=== PATIENT | female | born 1995 | race African-American/Black ===

== ENCOUNTER 2021-10-15 05:21 | Emergency (ER) | payer OTHER ==
[~2021-10-15] VITALS: Ht 170.2 cm; Wt 113.4 kg
--- NOTE | 2021-10-15 20:35 | EKG ---
[facility] [address] [facility] [place] [address] [address] and T wave abnormality Abnormal ECG No previous ECGs available Confirmed by JUAN JOSÉ GORDON MD ([id number]) on 10/15/2021 8:35:11 PM Electronically Signed By: JUAN JOSÉ GORDON MD 10/15/212034 PATIENT NAME: RUDDY STALLINGS Electrocardiogram DATE OF : [birth year] PHYSICIAN: JUAN JOSÉ GORDON MD REPORT #: [id number] REPORT IS CONFIDENTIAL AND NOT TO BE RELEASED WITHOUT AUTHORIZATION
== END 2021-10-15 08:00 | disposition home or self-care (01) ==
LOC: ED 05:21
DX: R07.89 Other chest pain (principal); R06.02 Shortness of breath; Z88.5 Allergy status to narcotic agent; Z88.6 Allergy status to analgesic agent
CPT/HCPCS: 36415; 71045; 71260; 80053; 83735; 84484; 84703; 85025; 85379; 93005; 93010; 99285-25; Q9967

== ENCOUNTER 2022-01-24 05:49 | Emergency (ER) | payer OTHER ==
[~2022-01-24] VITALS: Ht 170.2 cm; Wt 119.3 kg
[2022-01-24] MEDS ORDERED: OMEPRAZOLE20 MG PO (06:03)
[2022-01-24] MEDS ORDERED: FLUOXETINE HCL20 MG PO (06:03)
[2022-01-24] MEDS ORDERED: CYCLOBENZAPRINE10 MG PO (06:47)
== END 2022-01-24 08:44 | disposition home or self-care (01) ==
LOC: ED 05:49
DX: M54.50 Low back pain, unspecified (principal); Z88.5 Allergy status to narcotic agent; Z79.899 Other long term (current) drug therapy
CPT/HCPCS: 36415; 72110; 84703; 96372; 99283-25; A9270; J1885

== ENCOUNTER 2022-02-12 16:40 | Emergency (ER) | payer OTHER ==
[~2022-02-12] VITALS: Ht 170.2 cm; Wt 119.3 kg
[~2022-02-12 16:40] MED LIST: CYCLOBENZAPRINE10 MG PO; FLUOXETINE HCL20 MG PO; OMEPRAZOLE20 MG PO
--- OUTSIDE RECORDS SUMMARY | 2022-02-12 16:48 | XMS ---
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 E.D. VISIT COUNT (12 MO.) [address] T[address] 7 NOTE: Visits indicate total known visits. ED/UCC VISIT TRACKING (12 MO.) 02/12/2022 16:[address] [facility] [place] TYPE: Emergency COMPLAINT: - VAGINAL BLOODY DISCHARGE 01/24/2022 05:[address] [facility] [place] TYPE: Emergency COMPLAINT: - BACK AND HIP PAIN DIAGNOSES: - Allergy status to narcotic agent - Other snf (current) drug therapy - Low back pain, unspecified 11/21/2021 19:40 [facility] TYPE: Emergency COMPLAINT: - ABDOMINAL PAIN 10/15/2021 05:22 [facility] TYPE: Emergency COMPLAINT: - CHEST PAIN DIAGNOSES: - Allergy status to narcotic agent - Other chest pain - Allergy status to analgesic agent - Shortness of breath 04/10/2021 21:00 [facility] TYPE: Emergency COMPLAINT: - Cough - Shortness of breath DIAGNOSES: 1. Cough 2. Contact with and (suspected) exposure to COVID-19 02/13/2021 15:11 [facility] TYPE: Emergency COMPLAINT: - Unspecified abdominal pain DIAGNOSES: 1. Unspecified abdominal pain 02/13/2021 04:55 [facility] TYPE: Emergency COMPLAINT: - Other specified disorders of teeth and supporting structures DIAGNOSES: 1. Dental caries, unspecified INPATIENT VISIT TRACKING (12 MO.) No inpatient visits to display in this time frame [id number]
[2022-02-12] MEDS ORDERED: NITROFURANTOIN100 MG PO (20:12)
[2022-02-12] MEDS ORDERED: DIFLUCAN150 MG PO (20:42)
== END 2022-02-12 20:47 | disposition home or self-care (01) ==
LOC: ED 16:40
DX: B37.3 Candidiasis of vulva and vagina (principal); Z88.5 Allergy status to narcotic agent; Z79.899 Other long term (current) drug therapy
CPT/HCPCS: 99283

== ENCOUNTER 2022-02-16 11:45 | Emergency (ER) | payer OTHER ==
[~2022-02-16] VITALS: Ht 170.2 cm; Wt 119.3 kg
[~2022-02-16 11:45] MED LIST changes: +DIFLUCAN150 MG PO; +NITROFURANTOIN100 MG PO
--- OUTSIDE RECORDS SUMMARY | 2022-02-16 11:50 | XMS ---
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 E.D. VISIT COUNT (12 MO.) [address] T[address] 6 NOTE: Visits indicate total known visits. ED/UCC VISIT TRACKING (12 MO.) 02/16/2022 11:[address] [facility] [place] TYPE: Emergency COMPLAINT: - EXTREMITY PAIN/INJURY 02/12/2022 16:[address] 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 Cough 2. Contact with and (suspected) exposure to COVID-19 INPATIENT VISIT TRACKING (12 MO.) No inpatient visits to display in this time frame [id number]
== END 2022-02-16 13:22 | disposition home or self-care (01) ==
LOC: ED 11:45
DX: S93.401A Sprain of unspecified ligament of right ankle, initial encounter (principal); X50.1XXA Overexertion from prolonged static or awkward postures, initial encounter; Z88.5 Allergy status to narcotic agent; Z79.899 Other long term (current) drug therapy
CPT/HCPCS: 73610; 99283-25; A9270

== ENCOUNTER 2022-04-18 14:09 | Emergency (ER) | payer OTHER ==
[~2022-04-18] VITALS: Ht 170.2 cm; Wt 114.5 kg
[~2022-04-18 14:09] MED LIST changes: +AVIANE1 EACH PO; +CEPHALEXIN500 M1 PO; +PYRIDIUM200 MG PO; +VENLAFAXINE H37.5 M1 PO
--- OUTSIDE RECORDS SUMMARY | 2022-04-18 14:18 | XMS ---
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 [place] VISIT COUNT (12 MO.) [address] [place] [address] TOTAL 7 NOTE: Visits indicate total known visits. ED/UCC VISIT TRACKING (12 MO.) 04/18/2022 14:[address] 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 - Allergy status to narcotic agent - Sprain of unspecified ligament of right ankle, initial encounter 02/12/2022 16:40 [facility] TYPE: Emergency COMPLAINT: - VAGINAL BLOODY DISCHARGE DIAGNOSES: - Allergy status to narcotic agent - Dysuria - Candidiasis of vulva and vagina - Other [facility] (current) drug therapy 01/24/2022 05:50 [facility] TYPE: Emergency COMPLAINT: - BACK AND HIP PAIN DIAGNOSES: - Low back pain, unspecified - Allergy status to narcotic agent - 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
[2022-04-18] MEDS ORDERED: ONDANSETRON ODT8 MG PO (19:13)
== END 2022-04-18 19:55 | disposition home or self-care (01) ==
LOC: ED 14:09
DX: R10.2 Pelvic and perineal pain (principal); Z88.6 Allergy status to analgesic agent
CPT/HCPCS: 36415; 74177; 80053; 81001; 83690; 84703; 85025; 96361; 96375; 99284-25; J2405; J2550; J7030; Q9967